=== PATIENT | female | born 1970 | race Caucasian/White ===

== ENCOUNTER 2020-09-11 17:31 | Observation (INO) | payer MEDICARE ==
[~2020-09-11] VITALS: Ht 157.5 cm; Wt 79.4 kg
[~2020-09-11 17:31] MED LIST: AMLO5 PO; ATOR80 PO; DOCU100 PO; DULO30 PO; DULO60 PO; FENO145 PO; GLIP5 PO; Glyburide5 MG PO; HYDCHL25 PO; Hair, Skin & N1 EACH PO; INSUGL100V; INSULANPEN SC; Januvia50 MG PO; LAMO25 PO; LITH300ER PO; LORA2 PO; LOSA50 PO; Lithium Carbon450 MG PO; METF500 PO; METO25 PO; METO50ER PO; Metformin HCl1000 MG PO; Omeprazole20 M1 PO; PANT20 PO; PRAM.5 PO; Ropinirole HCl3 MG PO; SITA50T2 PO; TRAZ100 PO; TRAZ50 PO
[2020-09-11 18:05] LABS: Source, Urine Clean Catch
[2020-09-11 18:12] LABS: Appearance, Urine Clear (Clear); Bilirubin, Urine Neg (Neg); Blood, Urine Neg (Neg); Color, Urine Yellow (P-Yellow); Glucose Qualitative, Urine Neg (Neg); Ketones, Urine Neg (Neg); Leukocyte Esterase, Urine Neg (Neg); Nitrite, Urine Neg (Neg); Protein, Urine Neg (Neg); Urobilinogen, Urine NORM (Normal)
[2020-09-11 18:30] LABS: BASOPHILS ABSOLUTE AUTO 0.06 K/mm3 (0.00-0.23); BASOPHILS PERCENT AUTO 1 % (0-2); EOSINOPHILS ABSOLUTE AUTO 0.28 K/mm3 (0.00-0.68); EOSINOPHILS PERCENT AUTO 4 % (0-6); Hematocrit 39.2 % (33.0-51.0); Hemoglobin 12.7 g/dL (11.5-16.0); IMMATURE GRAN ABSOLUTE AUTO 0.05 K/mm3 (0.00-0.10); IMMATURE GRAN PERCENT AUTO 1 % (0-1); LYMPHOCYTES PERCENT AUTO 26 % (21-46); MONOCYTES ABSOLUTE AUTO 0.45 K/mm3 (0.16-1.47); MONOCYTES PERCENT AUTO 6 % (4-13); Mean Corpuscular HGB 29.3 pg (26.0-34.0); Mean Corpuscular HGB Conc 32.4 g/dL (31.5-36.5); Mean Corpuscular Volume 91 fL (80-100); Mean Platelet Volume 10.9 fL (9.1-12.4); NEUTROPHILS PERCENT AUTO 63 % (41-73); Platelet Count 276 K/mm3 (150-400); RDW Coefficient Variation 13.3 % (11.7-14.2); RDW Standard Deviation 44.4 fL (35.1-46.3); Red Blood Cell Count 4.33 M/mm3 (3.80-5.20); White Blood Cell Count 7.34 K/mm3 (4.00-11.30)
[2020-09-11 18:30] LABS: U Amphetamine Screen Not Detected; U Barbituate Screen Not Detected; U Benzodiazapine Screen Not Detected; U Buprenorphine Screen Not Detected; U Cannabinoids Screen DETECTED; U Cocaine Screen Not Detected; U Methadone Screen Not Detected; U Methamphetamine Screen Not Detected; U Opiates Screen Not Detected; U Oxycodone Screen Not Detected; U Phencyclidine Screen Not Detected
[2020-09-11 18:31] LABS: U Propoxyphene Screen Not Detected
[2020-09-11 18:51] LABS: Alanine Aminotransfer (ALT/SGP 25 U/L (12-78); Albumin, Blood 4.2 g/dL (3.4-5.0); Alk Phos 112 U/L (50-136); Anion Gap 4 mmol/L (6-16); Aspartate Aminotrans (AST/SGOT 11 U/L (12-37); Bilirubin, Total 0.2 mg/dL (0.1-1.0); Blood Urea Nitrogen 7 mg/dL (8-24); Bun/Creatinine Ratio 9.7 (12.0-20.0); CO2, Blood 26 mmol/L (21-32); Calcium, Blood 10.3 mg/dL (8.5-10.1); Chloride, Blood 110 mmol/L (98-108); Creatinine, Blood 0.72 mg/dL (0.40-1.00); Ethanol (Alcohol), Blood, Med <3 mg/dL; Globulin, Blood 4.2 g/dL (2.2-4.0); Glomerular Filtration Rate >60 (60-); Glucose, Blood 125 mg/dL (70-99); Potassium, Blood 3.9 mmol/L (3.5-5.5); Salicylate 2.3 mg/dL (2.8-20.0); Sodium, Blood 140 mmol/L (136-145); Total Protein, Blood 8.4 g/dL (6.4-8.2)
[2020-09-11 18:53] LABS: Acetaminophen, Random <2.0 ug/mL (10.0-30.0)
[2020-09-11 19:43] LABS: SARS-Cov-2 (COVID-19) PCR, MMC NEGATIVE (NEGATIVE)
[2020-09-12] MEDS ORDERED: OMEP20ER PO (08:36)
[2020-09-12] MEDS ORDERED: PRAM.5 PO (08:37)
== END 2020-09-12 13:35 ==
LOC: ER 17:31 → EOR 17:32
PROVIDERS: Physician Assistant; ADMIT Emergency Medicine
DX: F33.2 Major depressive disorder, recurrent severe without psychotic features (principal); I10 Essential (primary) hypertension; E11.9 Type 2 diabetes mellitus without complications; F17.210 Nicotine dependence, cigarettes, uncomplicated; Z79.4 Long term (current) use of insulin; Z88.8 Allergy status to other drugs, medicaments and biological substances; Z91.048 Other nonmedicinal substance allergy status; Z20.822 Contact with and (suspected) exposure to COVID-19
CPT/HCPCS: 36415; 80053; 80178; 81003; 81025; 82947; 85025; 99285; A9270; G0378; G0480; Q3014; U0004

== ENCOUNTER → 2020-10-03 | Outpatient (CLI) | payer MEDICARE ==
[~2020-10-03] MED LIST changes: +OMEP20ER PO
[2020-10-04 16:10] LABS: HPV 16 Negative (Negative); HPV 18 Negative (Negative); HPV OTHER HR TYPES Negative (Negative)
== END | disposition home or self-care (01) ==
LOC: LAB SHORT 11:40 → LAB 11:40
PROVIDERS: Family Medicine
DX: Z01.419 Encounter for gynecological examination (general) (routine) without abnormal findings (principal)
CPT/HCPCS: 87624; G0123

== ENCOUNTER 2021-04-13 05:30 | Inpatient (IN) | payer MEDICARE, OTHER ==
[~2021-04-13] VITALS: Ht 160 cm; Wt 85.5 kg
[2021-04-13] MEDS ORDERED: BASAGLAR K100 UNIT/8 SQ (06:05)
[2021-04-13] MEDS ORDERED: HYDROXYZINE PAM25 MG PO (06:06)
[2021-04-13 06:19] LABS: BASOPHILS ABSOLUTE AUTO 0.06 K/mm3 (0.00-0.23); BASOPHILS PERCENT AUTO 1 % (0-2); EOSINOPHILS ABSOLUTE AUTO 0.34 K/mm3 (0.00-0.68); EOSINOPHILS PERCENT AUTO 5 % (0-6); Hematocrit 39.5 % (33.0-51.0); Hemoglobin 12.8 g/dL (11.5-16.0); IMMATURE GRAN ABSOLUTE AUTO 0.03 K/mm3 (0.00-0.10); IMMATURE GRAN PERCENT AUTO 0 % (0-1); LYMPHOCYTES ABSOLUTE AUTO 2.04 K/mm3 (0.84-5.20); LYMPHOCYTES PERCENT AUTO 29 % (21-46); MONOCYTES ABSOLUTE AUTO 0.43 K/mm3 (0.16-1.47); MONOCYTES PERCENT AUTO 6 % (4-13); Mean Corpuscular HGB Conc 32.4 g/dL (31.5-36.5); Mean Corpuscular Volume 90 fL (80-100); Mean Platelet Volume 10.4 fL (9.1-12.4); NEUTROPHILS ABSOLUTE AUTO 4.06 K/mm3 (1.96-9.15); NEUTROPHILS PERCENT AUTO 58 % (41-73); Platelet Count 248 K/mm3 (150-400); RDW Coefficient Variation 12.7 % (11.7-14.2); RDW Standard Deviation 41.9 fL (35.1-46.3); Red Blood Cell Count 4.41 M/mm3 (3.80-5.20); White Blood Cell Count 6.96 K/mm3 (4.00-11.30)
[2021-04-13 06:29] LABS: Acetaminophen, Random 7.1 ug/mL (10.0-30.0); Alanine Aminotransfer (ALT/SGP 37 U/L (12-78); Albumin, Blood 3.4 g/dL (3.4-5.0); Albumin/Globulin Ratio 0.9 (0.8-1.8); Alk Phos 122 U/L (50-136); Anion Gap 6 mmol/L (6-16); Aspartate Aminotrans (AST/SGOT 15 U/L (12-37); Bilirubin, Total 0.2 mg/dL (0.1-1.0); Blood Urea Nitrogen 10 mg/dL (8-24); Bun/Creatinine Ratio 17.6 (12.0-20.0); CO2, Blood 26 mmol/L (21-32); Calcium, Blood 9.6 mg/dL (8.5-10.1); Chloride, Blood 109 mmol/L (98-108); Creatinine, Blood 0.57 mg/dL (0.40-1.00); Ethanol (Alcohol), Blood, Med <3 mg/dL; Globulin, Blood 3.7 g/dL (2.2-4.0); Glomerular Filtration Rate >60 (60-); Glucose, Blood 96 mg/dL (70-99); Salicylate <1.7 mg/dL (2.8-20.0); Sodium, Blood 141 mmol/L (136-145); Total Protein, Blood 7.1 g/dL (6.4-8.2)
[2021-04-13 07:40] LABS: Influenza A, PCR NEGATIVE (NEGATIVE); Influenza B, PCR NEGATIVE (NEGATIVE); Resp Syncytial Virus, PCR NEGATIVE (NEGATIVE); SARS-Cov-2 (COVID-19) PCR, MMC NEGATIVE (NEGATIVE)
[2021-04-13 09:02] LABS: Anion Gap 4 mmol/L (6-16); Blood Urea Nitrogen 11 mg/dL (8-24); CO2, Blood 28 mmol/L (21-32); Calcium, Blood 9.1 mg/dL (8.5-10.1); Chloride, Blood 110 mmol/L (98-108); Creatinine, Blood 0.55 mg/dL (0.40-1.00); Glomerular Filtration Rate >60 (60-); Glucose, Blood 81 mg/dL (70-99); Potassium, Blood 3.9 mmol/L (3.5-5.5); Sodium, Blood 142 mmol/L (136-145)
--- NOTE | 2021-04-13 09:41 | NUR ---
ASSUMED CARE OF PATIENT NEW ADMIT ER 0920: AOX4, CALM/PLEASANT, VSS W/ SOME HTN, HTN MEDS DUE, D5 1/2 NS 225ML/HR, CBG 90S, CONTACT GUARD TO COMMODE, VOIDS SPONTANEOUSLY, WILL CONTINUE TO MONITOR.
--- NOTE | 2021-04-13 09:43 | NUR ---
VERBAL WITH Isidra DICKERSON: PATIENT TO BE DEEMED LOW RISK SI W/ NO PSYCH HOLD.
--- NOTE | 2021-04-13 13:30 | NUR ---
Behavior/SI: At approx 1230hr, patient made statements to this RN that caused concern for SI and that patient would cause self harm if leaving the hospital. Patient stated "I wish I would not have called my boyfriend after taking the insulin, and I would of let it do the job". Patient then discussed that if she were to leave her boyfriend, she would have no place to stay. Then stating "if I leave him, I have nothing, except a gun, and im thinking I might...". Patient stopped her statement at that time. This RN then expressed concern for her safety r/t above comments and completed a suicide reassessment. Patient then denied any SI at that time. This Rn then contacted Dr. Castro to discuss statements made by patient, received orders to increase patient to moderaten SI precautions at that time. Remote monitoring notified to place patient on camera monitors. At approx 1300hr, patient became very agitated, yelling at staff and threatening to leave the facility. Dr. Castro then notified, who quickly reported room. Dr. Castro and Dr. Domingo then placed patient on 2MD hold. Patient remained agitated for approx additional 30min, then slowly calmed down and became calm/cooperative with staff. No attemtps to self harm throughout behavior.
--- NOTE | 2021-04-13 13:31 | NUR ---
INCREASED AGITATION BY PATIENT, MAKING DISTRESSED COMMENTS ABOUT "NOBODY CARES, NOBODY GIVES A SHIT." PATIENT MADE VERBAL COMMENTS ABOUT USING GUN TO END HER LIFE WHEN SHE GOES HOME, PATIENT YELLING AT THIS AND OTHER RNs, ATTEMPT TO LEAVE/PULL IVS, ABLE TO DEESCALATE PATIENT FOR THIS MOMENT, HOLD PLACED ON PATIENT, SECURITY ON STANDBY, PATIENT CONTINUES TO YELL IN ROOM.
[2021-04-13 15:20] LABS: Acetaminophen, Random <2.0 ug/mL (10.0-30.0); Alanine Aminotransfer (ALT/SGP 42 U/L (12-78); Albumin, Blood 3.2 g/dL (3.4-5.0); Albumin/Globulin Ratio 0.9 (0.8-1.8); Alk Phos 107 U/L (50-136); Anion Gap 3 mmol/L (6-16); Aspartate Aminotrans (AST/SGOT 27 U/L (12-37); Bilirubin, Total 0.2 mg/dL (0.1-1.0); Blood Urea Nitrogen 9 mg/dL (8-24); Bun/Creatinine Ratio 14.4 (12.0-20.0); CO2, Blood 29 mmol/L (21-32); Calcium, Blood 9.7 mg/dL (8.5-10.1); Chloride, Blood 109 mmol/L (98-108); Creatinine, Blood 0.63 mg/dL (0.40-1.00); Globulin, Blood 3.7 g/dL (2.2-4.0); Glomerular Filtration Rate >60 (60-); Glucose, Blood 125 mg/dL (70-99); Potassium, Blood 4.2 mmol/L (3.5-5.5); Sodium, Blood 141 mmol/L (136-145); Total Protein, Blood 6.9 g/dL (6.4-8.2)
[2021-04-13 15:34] LABS: Lithium 0.82 mmol/L (0.60-1.20)
[2021-04-13 16:09] LABS: Source, Urine Clean Catch
[2021-04-13 16:17] LABS: Appearance, Urine Clear (Clear); Bilirubin, Urine Neg (Neg); Blood, Urine Neg (Neg); Glucose Qualitative, Urine Neg (Neg); Ketones, Urine Neg (Neg); Leukocyte Esterase, Urine Neg (Neg); Nitrite, Urine Neg (Neg); Protein, Urine Neg (Neg); Specific Gravity, Urine 1.005 (1.003-1.022); Urobilinogen, Urine NORM (Normal)
[2021-04-13 16:22] LABS: Color, Urine Pale Yellow (P-Yellow)
[2021-04-13 16:32] LABS: U Amphetamine Screen Not Detected; U Barbituate Screen Not Detected; U Benzodiazapine Screen Not Detected; U Buprenorphine Screen Not Detected; U Cannabinoids Screen DETECTED; U Cocaine Screen Not Detected; U Methadone Screen Not Detected; U Methamphetamine Screen Not Detected; U Opiates Screen Not Detected; U Oxycodone Screen Not Detected; U Phencyclidine Screen Not Detected; U Propoxyphene Screen Not Detected
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
--- NOTE | 2021-04-13 18:42 | NUR ---
AOX4, LABILE MOOD, CALM PLEASANT AT TIMES OR EXTREMELY AGITATED VERBALLY ABUSIVE TO STAFF, PUPILS 3MM BRISK, CONTACT GUARD TRANSFERS, NSR 60/70S, +2 PULSES, HTN 140/150S, LUNGS CLEAR, DENIES SOB, ABDOMEN ROUNDED, AUDIBLE/HYPOACTIVE MIXED BOWELS, VOIDS BSC CLEAR YELLOW, 5MG ZYPREXA GIVEN FOR AGITATION, CBGS BETWEEN 70-150, D5 1/2NS CHANGED TO D10 GTT TO D30 GTT TO MAINTAIN BLOOD SUGARS WNL 150 GOAL, TOLERATING MEALS, PICC TO ROSA MARIA FOR D30 GTT.
--- NOTE | 2021-04-13 19:30 | NUR ---
PATIENT A&O USING CALL LIGHT APPROPRIATELY. UP TO BSC TO VOID CLEAR YELLOW URINE. PATIENT COOPERATIVE WITH CARE. D30 @ 160 CC/HR INFUSING, PLAN TO TITRATE ABLE FOR GOAL OF GLUCOSE 120-200.
[2021-04-14 04:13] LABS: BASOPHILS ABSOLUTE AUTO 0.05 K/mm3 (0.00-0.23); BASOPHILS PERCENT AUTO 1 % (0-2); EOSINOPHILS ABSOLUTE AUTO 0.34 K/mm3 (0.00-0.68); EOSINOPHILS PERCENT AUTO 5 % (0-6); Hematocrit 40.9 % (33.0-51.0); Hemoglobin 13.1 g/dL (11.5-16.0); IMMATURE GRAN ABSOLUTE AUTO 0.05 K/mm3 (0.00-0.10); IMMATURE GRAN PERCENT AUTO 1 % (0-1); LYMPHOCYTES ABSOLUTE AUTO 2.13 K/mm3 (0.84-5.20); LYMPHOCYTES PERCENT AUTO 30 % (21-46); MONOCYTES ABSOLUTE AUTO 0.44 K/mm3 (0.16-1.47); MONOCYTES PERCENT AUTO 6 % (4-13); Mean Corpuscular HGB 28.9 pg (26.0-34.0); Mean Corpuscular Volume 90 fL (80-100); NEUTROPHILS ABSOLUTE AUTO 4.08 K/mm3 (1.96-9.15); NEUTROPHILS PERCENT AUTO 58 % (41-73); Platelet Count 239 K/mm3 (150-400); RDW Coefficient Variation 12.9 % (11.7-14.2); RDW Standard Deviation 42.4 fL (35.1-46.3); Red Blood Cell Count 4.53 M/mm3 (3.80-5.20); White Blood Cell Count 7.09 K/mm3 (4.00-11.30)
[2021-04-14 04:34] LABS: Alanine Aminotransfer (ALT/SGP 38 U/L (12-78); Albumin, Blood 3.3 g/dL (3.4-5.0); Albumin/Globulin Ratio 0.9 (0.8-1.8); Alk Phos 100 U/L (50-136); Anion Gap 2 mmol/L (6-16); Aspartate Aminotrans (AST/SGOT 19 U/L (12-37); Bilirubin, Total 0.2 mg/dL (0.1-1.0); Blood Urea Nitrogen 8 mg/dL (8-24); Bun/Creatinine Ratio 14.3 (12.0-20.0); CO2, Blood 29 mmol/L (21-32); Calcium, Blood 9.5 mg/dL (8.5-10.1); Chloride, Blood 110 mmol/L (98-108); Creatinine, Blood 0.56 mg/dL (0.40-1.00); Globulin, Blood 3.6 g/dL (2.2-4.0); Glomerular Filtration Rate >60 (60-); Glucose, Blood 118 mg/dL (70-99); Potassium, Blood 3.9 mmol/L (3.5-5.5); Sodium, Blood 141 mmol/L (136-145); Total Protein, Blood 6.9 g/dL (6.4-8.2)
--- NOTE | 2021-04-14 07:38 | NUR ---
SUMMARY PATIENT REMAINING RELAXED AND CALM T/O NIGHT. D30 TITRATED FOR GLUCOSE GREATER THAN 120 NOW INFUSING 120 CC/HR. UP TO BSC WITH MIN ASSIST DURING THE NIGHT. REPOSITIONING SELF FOR COMFORT T/O NIGHT.
--- NOTE | 2021-04-14 19:50 | NUR ---
A&OX4. COOPERATIVE AND PLEASNT TODAY. PT STATES SHE DOES NOT HAVE ACTIVE SI TODAY. MULTIPLE OUTBURST OF TEARS. WAS SEVERELY DISTRAUGHT WITH NEWS THAT SHE WILL HAVE TO GO TO PSYCHIATRIC HOSPITAL, BP INCREASED AND PT STATED SHE FELT LIKE SHE WAS "HAVING AN ANXIETY ATTACK." NOTIFIED, ORDERS FOR PRN HYDRALAZINE AND ATIVAN OBTAINED. D30 DRIP INFUSING. SEE FLOWSHEET FOR TITRATIONS. CURRENYL RUNNING AT 100ML/HR. 3 BMS TODAY, VOIDS IN COMMODE. ROOM AIR.
--- NOTE | 2021-04-14 20:00 | NUR ---
PATIENT AWAKE A&O COOPERATIVE WITH CARE. VERBALIZED NOT WANTING TO GO TO IN HOUSE THERAPY. PATIENT VERBALIZING CONCERN OF BEING HOMELESS, AND WORRIED ABOUT HER PERSONAL BELONGINGS AT THE HOUSE. ASKING ABOUT MAKING A TELEPHONE CALL. WHEN ASKED IF IT WILL MAKE HER MORE UPSET, PATIENT VERBALIZED THAT IT MIGHT. EXPLAINED TO PATIENT THAT OUR GOAL WHILE SHE IS HERE IN THE ICU IS TO KEEP HER AND HER ROOM CALM POSSIBLE AND THAT THE PHONE CALL WOULD NOT BE ADVISABLE. PATIENT VERBALIZED UNDERSTANDING.
--- NOTE | 2021-04-15 00:38 | NUR ---
PATIENT SLEEPING, FREQUENT LEG MOVEMENTS AND PATIENT MOANING IF SHE IS DREAMING. PATIENT AWAKENS TO SLIGHT STIMULI. VERBALIZED THAT SHE SPOKE TO DOCTOR LUNA ABOUT RESTLESS LEGS. REFUSING PRN ATIVAN AT THIS TIME. APPEARS TO FALL BACK TO SLEEP WHEN UNDISTURBED.
[2021-04-15 03:49] LABS: BASOPHILS ABSOLUTE AUTO 0.05 K/mm3 (0.00-0.23); BASOPHILS PERCENT AUTO 1 % (0-2); EOSINOPHILS ABSOLUTE AUTO 0.03 K/mm3 (0.00-0.68); EOSINOPHILS PERCENT AUTO 0 % (0-6); Hematocrit 44.3 % (33.0-51.0); Hemoglobin 14.4 g/dL (11.5-16.0); IMMATURE GRAN ABSOLUTE AUTO 0.07 K/mm3 (0.00-0.10); IMMATURE GRAN PERCENT AUTO 1 % (0-1); LYMPHOCYTES ABSOLUTE AUTO 1.55 K/mm3 (0.84-5.20); LYMPHOCYTES PERCENT AUTO 15 % (21-46); MONOCYTES PERCENT AUTO 4 % (4-13); Mean Corpuscular HGB 28.6 pg (26.0-34.0); Mean Corpuscular HGB Conc 32.5 g/dL (31.5-36.5); Mean Corpuscular Volume 88 fL (80-100); Mean Platelet Volume 10.3 fL (9.1-12.4); NEUTROPHILS ABSOLUTE AUTO 8.34 K/mm3 (1.96-9.15); NEUTROPHILS PERCENT AUTO 80 % (41-73); Platelet Count 300 K/mm3 (150-400); RDW Coefficient Variation 12.5 % (11.7-14.2); RDW Standard Deviation 40.3 fL (35.1-46.3); Red Blood Cell Count 5.03 M/mm3 (3.80-5.20); White Blood Cell Count 10.44 K/mm3 (4.00-11.30)
[2021-04-15 04:06] LABS: Alanine Aminotransfer (ALT/SGP 38 U/L (12-78); Albumin, Blood 3.6 g/dL (3.4-5.0); Albumin/Globulin Ratio 0.9 (0.8-1.8); Alk Phos 108 U/L (50-136); Anion Gap 4 mmol/L (6-16); Aspartate Aminotrans (AST/SGOT 13 U/L (12-37); Bilirubin, Total 0.2 mg/dL (0.1-1.0); Blood Urea Nitrogen 7 mg/dL (8-24); Bun/Creatinine Ratio 12.8 (12.0-20.0); CHOL/HDL RATIO 5.5; CO2, Blood 28 mmol/L (21-32); Calcium, Blood 10.4 mg/dL (8.5-10.1); Chloride, Blood 107 mmol/L (98-108); Cholesterol 263 mg/dL (50-200); Creatinine, Blood 0.55 mg/dL (0.40-1.00); Globulin, Blood 4.2 g/dL (2.2-4.0); Glomerular Filtration Rate >60 (60-); Glucose, Blood 127 mg/dL (70-99); HDL Cholesterol 48 mg/dL (>39); LDL/HDL RATIO 3.5; Low Density Lipoprotein Chol 166 mg/dL (0-110); Potassium, Blood 3.8 mmol/L (3.5-5.5); Sodium, Blood 139 mmol/L (136-145); Total Protein, Blood 7.8 g/dL (6.4-8.2); Triglycerides 247 mg/dL (30-160); Very Low Density Lipoprot Chol 49 mg/dL (6-32)
--- NOTE | 2021-04-15 07:00 | NUR ---
SUMMARY PATIENT SLEEPING OFF AND ON T/O NIGHT. AWAKING EASILY TO SLIGHT STIMULI. PATIENT VERBALIZED SHE FEELS LIKE SHE WAS ABLE TO GET SOME GOOD SLEEP. D30 WAS TITRATED DOWN TO 45 CC/HR DURING THE NIGHT, SEE FLOW SHEET.
--- NOTE | 2021-04-15 08:38 | NUR ---
Contacted by RN for Suicide Safety Plan completion. Record review indicates patient is referred for higher level of care to inpatient psychiatric unit due to severity of illness. Plan not indicated at this time, as plan is not to discharge, but transfer. Shabnam Medrano M.Ed., [facility]
[2021-04-15 08:49] LABS: Lithium 0.55 mmol/L (0.60-1.20)
--- NOTE | 2021-04-15 09:06 | NUR ---
ASSUMED CARE REPORT FROM EDGARDO JOEL. PT RESTING IN BED. A&OX 4. FOLLOWS COMMANDS. PLEASANT. DENIES SI. STATES SHE FEELS SAFE IN ROOM. AGREEABLE TO PLAN TO TRANSFER TO HIGHER LEVEL OF CARE. CAMERA MONITORING. PT INDEPENDENT IN ROOM. D 30 INFUSING, TITRATING DOWN. TOLERATING PO WELL. 1 HR CBGS. PICC TO LUE, DRESSING C/D/I. VSS. WILL CONTINUE TO MONITOR.
--- NOTE | 2021-04-15 12:19 | NUR ---
I spoke with Salvador Maharaj with [facility] in the patient's room today regarding her transfer plan. Patient is aware she will be transferring to inpatient psych, and is agreeable. Salvador also brought an application for [facility] I plan to complete with the patient. Patient also agrees with seeking temporary housing with [facility] (formerly [facility]) [phone]. I called them requesting a call back from one of their advocates to help facilitate this arrangement post transfer discharge. I have also called [facility] in regards to possible placement. I have faxed the referral to them as well. I plan to follow up with them shortly and to also arrange secure transport.
--- NOTE | 2021-04-15 17:13 | NUR ---
SHIFT SUMMARY PT REMAINS ON 2 MD HOLD, MODERATE SI RISK. CONTINUED CAMERA OBSERVATION. PT CALM, COOPERATIVE c CARE. PLEASANT. AGREEABLE TO TRANSFER IF NECESSARY. PER JOSE A, WILL CONTINUE TO OBSERVE, MAY D/C TO [facility] THEN [facility] FOR HOUSING. NOT SEEKING INPATIENT PSYCH AT THIS TIME. D30 CONTINUES, TOLERATING MEALS WELL. INDEPENDENT IN ROOM. VSS. WILL CONTINUE TO MONITOR.
--- NOTE | 2021-04-15 20:00 | NUR ---
ASSUMED CARE: AOX3, COOPERATIVE, PLEASANT. INDEPENDENT IN THE ROOM. ABLE TO MAKE NEEDS KNOWN. STATES SHE IS STILL CONCERNED ABOUT WHAT WILL HAPPEN TO HER AFTER HOSPITALIZATION. ENCOURAGE HER TO WORK WITH CASE MANAGMENT AND OSD CLERK. D30 DRIP AT 15CC/HR. BLOOD SUGARS AVERAGE IN THE 200'S AT THIS TIME. WILL CONTINUE TO MONITOR. CALL LIGHT IN REACH.
[2021-04-16 04:27] LABS: BASOPHILS ABSOLUTE AUTO 0.04 K/mm3 (0.00-0.23); BASOPHILS PERCENT AUTO 0 % (0-2); EOSINOPHILS ABSOLUTE AUTO 0.03 K/mm3 (0.00-0.68); EOSINOPHILS PERCENT AUTO 0 % (0-6); Hematocrit 42.1 % (33.0-51.0); Hemoglobin 13.7 g/dL (11.5-16.0); IMMATURE GRAN ABSOLUTE AUTO 0.12 K/mm3 (0.00-0.10); IMMATURE GRAN PERCENT AUTO 1 % (0-1); LYMPHOCYTES ABSOLUTE AUTO 1.71 K/mm3 (0.84-5.20); LYMPHOCYTES PERCENT AUTO 12 % (21-46); MONOCYTES ABSOLUTE AUTO 0.56 K/mm3 (0.16-1.47); MONOCYTES PERCENT AUTO 4 % (4-13); Mean Corpuscular HGB 28.6 pg (26.0-34.0); Mean Corpuscular HGB Conc 32.5 g/dL (31.5-36.5); Mean Corpuscular Volume 88 fL (80-100); Mean Platelet Volume 10.1 fL (9.1-12.4); NEUTROPHILS ABSOLUTE AUTO 11.58 K/mm3 (1.96-9.15); NEUTROPHILS PERCENT AUTO 82 % (41-73); Platelet Count 294 K/mm3 (150-400); RDW Coefficient Variation 12.5 % (11.7-14.2); RDW Standard Deviation 40.4 fL (35.1-46.3); Red Blood Cell Count 4.79 M/mm3 (3.80-5.20); White Blood Cell Count 14.04 K/mm3 (4.00-11.30)
[2021-04-16 04:43] LABS: Albumin, Blood 3.5 g/dL (3.4-5.0); Anion Gap 4 mmol/L (6-16); Blood Urea Nitrogen 14 mg/dL (8-24); Bun/Creatinine Ratio 24.9 (12.0-20.0); CO2, Blood 29 mmol/L (21-32); Calcium, Blood 9.8 mg/dL (8.5-10.1); Chloride, Blood 106 mmol/L (98-108); Creatinine, Blood 0.56 mg/dL (0.40-1.00); Glomerular Filtration Rate >60 (60-); Glucose, Blood 200 mg/dL (70-99); Phosphorus, Blood 3.5 mg/dL (2.5-4.9); Potassium, Blood 4.2 mmol/L (3.5-5.5); Sodium, Blood 139 mmol/L (136-145)
--- NOTE | 2021-04-16 06:03 | NUR ---
SHIFT SUMMARY: AOX3, INDEPENDENT IN ROOM. COOPERATIVE AND MOTIVATED TO FOLLOW PLAN OF CARE AND TO GET OUT OF HOME SITUATION. BLOOD SUGARS Q1, AVERAGE RANGE 170-200'S THIS SHIFT. D30 RUNNING AT 25CC/HR. PICC AND Seema GONZALEZ IS PATIENT. NO PAIN OR DISCOMFORT. VERY ENCOURAGED TO GET PLACED IN [place]. SLEPT WELL OFF AND ON. NO ACUTE CHANGES TO NOTE. CALL LIGHT IN REACH.
--- NOTE | 2021-04-16 07:38 | NUR ---
ASSUMED PT CARE REPORT AND BEDSIDE ROUNDING WITH MARSHA RN AND ORI RN AT 0710, ASSUMED PT CARE. PT ALERT AND ORIENTED. ANSWERS QUESTIONS APPROPRIATELY. PT HAS SL 18G TO RIGHT FA, SITE WNL, DRESSING C/D/I. TL PICC TO ROSA MARIA, SITE WNL, DRESSING HAS OLD BLOOD NOTED. LUNG SOUNDS CLEAR. PT ON ROOM AIR. OCCASSIONAL NON PRODUCTIVE COUGH. HR SR, PULSES STRONG. SBP WNL, OCCASSIONALY HYPERTENSIVE, ON PO MEDCATIONS. PT AMBULATORY INDEPENDENTLY IN ROOM. ON REGULAR DIET AND TOELRATING WELL. CBG CHECKS Q1HR WHILE D30 INFUSING TO KEEP BLOOD GLUCOSE STABLE. D30 INF AT 20ML. PT PLEASANT, DENIES SUICIDAL THOUGHTS/INTENTIONS THIS AM. SEE FULL SHIFT ASSESSMENT.
--- NOTE | 2021-04-16 12:00 | NUR ---
UPDATE PT CONTINUES TO BE ALERT AND ORIENTED. PLEASANT. HAS SHOWERED AND CHANGED CLOTHES. LINENS CHANGED. DR WICK TO BEDSIDE TWICE. PT NO LONGER RECEIVING D30, CBG NOW Q2HRS AND PRN. PT MAINTAINING VS. VSS. PLAN TO GET PT INTO A SAFE PLACE PRIOR TO DC.
--- NOTE | 2021-04-16 16:24 | NUR ---
Per Dr. Lyons and Dr. Mendiola this morning, patient will be appropriate for outpatient psych and counseling services. I contacted [facility] again this morning. They are sending an advocate (Damaso) tomorrow to assess the patient and her needs. They state that they are currently at capacity in their assisted but, would be able to fund a motel room until the patient receives placement. Patient is aware of this plan and is agreeable.
--- NOTE | 2021-04-16 18:05 | NUR ---
SHIFT SUMMARY PT REMAINS ALERT AND ORIENTED. PT INDEPENDENT IN ROOM. SHOWERED TODAY. IN GOOD SPIRITS AND IS PLEASANT. LUNG SOUNDS CLEAR, PT ON ROOM AIR. BLOOD PRESSURES STABLE. ABD SOFT AND NONTENDER. VOIDING PER TOILET. SKIN CLEAN/DRY AND INTACT (SMALL ABRASION/PRICKS TO FINGERS FROM [employer]). PT KNOW MEDICAL STATUS WITH TELE. ON REGULAR DIET (NEEDS TO BE CHANGED TO ADA WHEN BLOOD SUGARS STABLE). PT BLOOD SUGAR CHECKS NOW EVERY 4HRS AND HAVE BEEN STABLE ALL DAY. PT DENIES PAIN, DENIES SOB, DENIES NAUSEA. PICC LINE TO ROMARIO CRANE, SITE WNL. NEW DRESSING PLACED TODAY. WILL CONTINUE TO MONITOR AND REPORT TO ONCOMING SHIFT.
--- NOTE | 2021-04-16 19:40 | NUR ---
ASSUMED CARE. SATYA IS DOING A LOT BETTER. SHE IS UP IN THE CHAIR, COLORING IN HER BOOK. HAPPY AND IN A GOOD MOOD. SHE IS OFF THE D30, BLOOD SUGARS AVERAGING IN THE 200'S. DOES REPORT SOME MILD CONSTIPATION, REQUEST STOOL SOFTNERS, WILL HOP ONTO NEXT CALL TO MD. DOWN TO PG TO THE LEFT UPPER ARM. INDEPENDENT IN THE ROOM, WILL CONTINUE TO MONITOR.
--- NOTE | 2021-04-17 05:58 | NUR ---
SHIFT SUMMARY: SATYA HAS IMPROVED. CHEM BG ARE EVERY 4 HOURS, BS RUNNING IN THE 200'S. ON ADA DIET AND COMPLAINT. CONTINUES TO BE COOPERATIVE AND IN GOOD SPIRITS. WAS ABLE TO SLEEP A LITTLE MORE LAST NIGHT. VS WNL, AFEBRILE. DENIES ANY SUCIDIAL INTENTIONS. VERY COURAGE TO MOVE ON WITH HER LIFE. CALL LIGHT IS IN REACH.
--- NOTE | 2021-04-17 07:15 | NUR ---
ASSUMED PT CARE REPORT FROM MARSHA JOEL, ASSUMED PT CARE AT 0700. PT ALERT AND ORIENTED. ON ROOM AIR. PLEASANT AND COOPERATIVE THIS AM. DENIES SUICIDAL IDEATION/THOUGHTS. LUNG SOUNDS CLEAR, OCCASSIONAL DRY NONPRODUCTIVE COUGH. PT ON ROOM AIR. DENIES SOB. HR SR 67. SBP STABLE. ABD SOFT AND NONTENDER. PT UP TO TOILET INDEPENDENTLY. USES CALL LIGHT. DENIES PAIN, DENIES NAUSEA. SKIN INTACT. SEE FULL SHIFT ASSESSMENT.
--- NOTE | 2021-04-17 14:00 | NUR ---
DR CARRASCO TO ROOM FOR EVAL. VERBAL ORDERS RECEIVED TO INCREASE TRAZADONE TO 100MG PO QHS. ROSENDO WITH [facility] AND JOEL WITH [facility] TO ROOM FOR INTAKE INTERVIEW.
--- NOTE | 2021-04-17 17:41 | NUR ---
SHIFT SUMMARY PT REMAINS ALERT AND ORIENTED. PLEASANT AND COOPERATIVE. ABLE TO USE CALL LIGHT, COMMUNICATE NEEDS AND IS INDEPENDENT IN ROOM. TL PICC TO ROSA MARIA, SITE WNL, DRESSING CLEAN, LOOSE AROUND EDGES. NO LEAKING. PT LUNG SOUNDS CLEAR, SATS >95% ON RA. SBP STABLE. HR SINUS IN 60S. PT DENIES CHEST PAIN, DENIES SOB, LIANE NAUSEA/VOMITING. ABD SOFT AND NONTENDER. PT REQUESTING SOMETHING TO HELP HER STOOL, WILL PASS ON TO NOC SHIFT. SKIN INTACT. SLIGHT BRUISING TO FINGER TIPS FROM GLUCOSE CHECKS. PT VOIDS PER TOILET. APPETITE WNL. CBGS HAVE BEEN TRENDING APPROPRIATELY. PT HAS BEEN ASYMPTOMATIC. WILL CONTINUE TO MONITOR AND REPORT TO ONCOMING SHIFT.
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
--- NOTE | 2021-04-18 07:04 | NUR ---
resumed care, pm rns gave report, patient vss, pleasant oriented, and call light with in reach. Probable discharge home today with the help of [facility]
--- NOTE | 2021-04-18 08:43 | NUR ---
Safe transporation and safe housing has been arranged for the patient upon discharge. Patient is aware and agreeable.
[2021-04-18] MEDS ORDERED: AMLO10 PO (12:26)
[2021-04-18] MEDS ORDERED: DULOXETINE HCL30 MG PO (12:27)
[2021-04-18] MEDS ORDERED: METF500C PO ×2 (12:30→12:31)
[2021-04-18] MEDS ORDERED: TRAZ100 PO (12:32)
[2021-04-18] MEDS ORDERED: DOCU100 PO (12:33)
[2021-04-18] MEDS ORDERED: EZET10 PO (12:33)
[2021-04-18] MEDS ORDERED: LOSA50 PO (12:36)
[2021-04-18] MEDS ORDERED: EUTHYROX50 MCG PO (12:44)
--- NOTE | 2021-04-18 13:25 | NUR ---
PATIENT DISCHARGED FROM THE HOSPITAL. [facility] AND [facility]OTTER PRESENT WITH THE PATIENTS AND GIVING HER A RIDE TO HER DESTINATION
--- NOTE | 2021-04-18 13:32 | NUR ---
Per chart review with Dr. Whyte, patient is appropriate for discharge. Safe housing and transporation has been arranged with [facility] who met with patient in her room at discharge. Patient is aware she will need to schedule a hospital follow up for next week. Dr. Whyte prescribed patient's medications due to not having access to necessities from her previous residence. Patient and [facility] are aware of this. Patient denied barriers to discharge.
== END 2021-04-18 13:25 | disposition home or self-care (01) | DRG 918 ==
LOC: ER 05:30 → ICUW 08:07 → ICUE 08:07
PROVIDERS: Emergency Medicine; Family Medicine; Psychiatry & Neurology Psychiatry; ADMIT Family Medicine
PROC: 3E02340 Introduction of Influenza Vaccine into Muscle, Percutaneous Approach (ICD-10-PCS; principal; 2021-04-13)
PROC: 02HV33Z Insertion of Infusion Device into Superior Vena Cava, Percutaneous Approach (ICD-10-PCS; 2021-04-13)
PROC: 4A02X4A Measurement of Cardiac Electrical Activity, Guidance, External Approach (ICD-10-PCS; 2021-04-13)
DX: T38.3X2A Poisoning by insulin and oral hypoglycemic [antidiabetic] drugs, intentional self-harm, initial encounter (principal); F31.81 Bipolar II disorder; Z20.822 Contact with and (suspected) exposure to COVID-19; T39.1X2A Poisoning by 4-Aminophenol derivatives, intentional self-harm, initial encounter; T45.0X2A Poisoning by antiallergic and antiemetic drugs, intentional self-harm, initial encounter; T42.8X2A Poisoning by antiparkinsonism drugs and other central muscle-tone depressants, intentional self-harm, initial encounter; F17.210 Nicotine dependence, cigarettes, uncomplicated; E11.649 Type 2 diabetes mellitus with hypoglycemia without coma; I10 Essential (primary) hypertension; Z23 Encounter for immunization; F12.10 Cannabis abuse, uncomplicated; M79.641 Pain in right hand; E03.9 Hypothyroidism, unspecified; E78.5 Hyperlipidemia, unspecified; E66.9 Obesity, unspecified; F10.21 Alcohol dependence, in remission; Z88.8 Allergy status to other drugs, medicaments and biological substances; Z79.899 Other long term (current) drug therapy; Z79.4 Long term (current) use of insulin; Z79.84 Long term (current) use of oral hypoglycemic drugs; Z68.31 Body mass index [BMI] 31.0-31.9, adult; Z91.410 Personal history of adult physical and sexual abuse
CPT/HCPCS: 0241U; 36415; 36569; 73130; 80048; 80053; 80061; 80069; 80178; 81003; 81025; 82947; 85025; 90686; 93005; 93010; 96365; 96366; 96375; 96376; 99285-25; A9270; C1751; G0008; G0480; J0360; J1650; J1720; J2060; J7042